=== PATIENT | male | born 1945 | race Caucasian/White ===

== ENCOUNTER 2023-07-09 08:41 | Emergency (ER) | payer OTHER, SELFPAY ==
[2023-07-09 08:59] VITALS: BP 140/83
[2023-07-09 09:28] VITALS: BMI 28.8
[2023-07-09 09:48] LABS: % Basophils 1.1 % (0-2); % Eosinophils 15.1 % (0-6); % Immature Granulocytes 0.5 % (0-0.5); % Lymphocytes 16.6 % (20.5-51.1); % Monocytes 12.2 % (1.7-9.3); % Neutrophils 54.5 % (42.2-75.2); Absolute Basophils 0.1 10^3/uL (0-0.2); Absolute Eosinophils 1.1 10^3/uL (0-0.7); Absolute Lymphocytes 1.3 10^3/uL (1.2-3.4); Absolute Monocytes 0.9 10^3/uL (0.1-0.6); Absolute Neutrophils 4.1 10^3/uL (1.4-6.5); Hematocrit 42.6 % (39.0-52.0); Hemoglobin 14.4 g/dL (13.0-18.0); Mean Corp Hgb Conc. 33.8 g/dL (33.0-37.0); Mean Corpuscular Hgb 28.9 pg (27.0-31.0); Mean Corpuscular Volume 85.5 fL (80.0-94.0); Mean Platelet Volume 9.7 fL (7.4-10.4); Nucleated Red Blood Cells % 0 % (-); Platelet Count 221 10^3/uL (130-400); Red Blood Cell Count 4.98 10^6/uL (4.70-6.10); Red Cell Dist. Width 13.9 % (11.5-14.5); White Blood Cell Count 7.5 10^3/uL (4.8-10.8)
--- NOTE | 2023-07-09 09:49 | ED.GENMED ---
History of Present Illness
General
Chief Complaint: Breathing Problem
Source: patient and spouse
Time Seen by Provider: 07/09/23 09:08
Travel History
Have you had any contact with someone who has COVID-19?: No
Do you have any symptoms of coronavirus? Fever > 100 degrees, chills, cough, shortness of breath, sore throat, loss of taste or smell, muscle aches, or headache?: No
History of Present Illness
History of Present Illness:
77-year-old male presenting the emergency department for evaluation after he has had upper respiratory symptoms that been ongoing since June 13, presented to urgent care on June 14 where he was a steroid taper and inhaler. Upon completing the
steroid felt better for about 2 days but then his upper respiratory symptoms returned. Patient went to his primary care provider on June 26 where he was checked for COVID, flu and RSV and was negative for all 3. Patient was restarted on a
longer term course of steroids which she has been taking but finished 2 days ago without much relief. Patient still endorses cough, sputum production, sinus congestion and notes that last night he started to feel short of breath noting that when he
would start to fall asleep felt as if someone were choking him and noted his pulse ox at that time was around 92% on room air. 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
ultimately ended up intubated for 2 days and recovered without any complications. Patient notes no history of asthma or COPD. He is readily compliant with the rest of his chronic medications for hypertension. No known sick contacts, recent travel
or recent antibiotics.
Past History
Past History
ED Past Medical History: Cancer (Bladder CA), HTN, Hypercholesterolemia and Other (Uretheral strictures, Urinary sepsis)
ED Past Surgical History: Orthopedic and Urological (Bladder surgery with Chemo)
Social History
Tobacco: Former smoker
Alcohol: None
Drug: None
Personal:
Living: with family
Employment: Employed
Review of Systems
Review of Systems
All Other Systems: ROS reviewed and negative except as documented in HPI and ROS
Phy Exam
Physical Exam
Physical Exam:
GENERAL: Alert , in no apparent distress
EYE: conjunctiva clear
NECK: Supple
ENT: o/p clr, mmm.
CARDIAC: Regular rate and rhythm, systolic murmur noted on the left sternal border
LUNGS: Slightly diminished within the right mid to lower lung, no acute respiratory distress, no wheezes/rales/rhonchi
NEUROLOGICAL: Alert and oriented
SKIN: Warm and dry, skin intact.
MUSCULOSKELETAL: well perfused. No edema
PSYCH: Normal and appropriate interaction.
Scores
Heart Failure Risk
Heart Failure Risk Score: Not Applicable
Heart Score for Chest Pain Patients
STEMI patient?: Not applicable
Withdrawal Assessment of Alcohol
Withdrawal Assessment Completed?: Not applicable
Course
Orders/Labs/Results
Orders:
Orders
07/09/23 09:09
Electrocardiogram (*1) Urgent
Reason for Study: Shortness of Breath
EKG- Treatment ONCE
07/09/23 09:38
Basic Metabolic Panel Urgent
Complete Blood Count/With Diff Urgent
D-Dimer Urgent
NT-proBNP Urgent
Troponin I Urgent
07/09/23 10:27
CR Chest - 2 Views Urgent
Comment:
Reason For Exam: cough, SOB
Abnormal Lab Results
07/09/23
09:38
Absolute Monos (auto) 0.9 H 10^3/uL
(0.1-0.6)
Absolute Eos (auto) 1.1 H 10^3/uL
(0-0.7)
Lymphocytes % 16.6 L %
(20.5-51.1)
Monocytes % 12.2 H %
(1.7-9.3)
Eosinophils % 15.1 H %
(0-6)
BUN 22 H mg/dl
(9-20)
Creatinine 1.4 H mg/dL
(0.7-1.3)
07/09/23 09:38
07/09/23 09:38
Vital Signs
Initial and Last Documented VS:
Initial Vital Signs
Temp Pulse Resp BP Pulse Ox
98.8 F 70 17 140/83 95
07/09/23 08:59 07/09/23 08:59 07/09/23 08:59 07/09/23 08:59 07/09/23 08:59
Last Documented Vital Signs
Temp Pulse Resp BP Pulse Ox
98.8 F 61 20 125/82 93
07/09/23 08:59 07/09/23 11:00 07/09/23 11:00 07/09/23 11:00 07/09/23 11:00
MDM/Problems Addressed
Differential Diagnosis Includes:
Pneumonia, CHF, valvular dysfunction, pulmonary embolism, bronchitis
MDM/Problems Addressed:
77-year-old male presenting emergency department for evaluation of upper respiratory symptoms that have been ongoing for over 3 weeks. Patient has completed 2 separate steroid tapers but without much relief, last night started experiencing
increased shortness of breath. On arrival to the emergency department here he is hemodynamically stable and is otherwise well-appearing and in no acute respiratory distress will check labs, EKG, D-dimer ordered and imaging will be dependent on this
results with either a chest x-ray or CT scan. Reassessment following
*Radiology
Radiology exam reviewed: preliminary read by ED provider (Questionable right perihilar infiltrate)
*Pulse Oximetry
Patient hypoxic: no
*EKG
Interpreted by ED Provider?: Yes
Comparison EKG: no changes
Heart Rate: 63
Rate: normal
Rhythm: sinus
Ischemia: no ischemia
*Critical Care Note
Total Time (30-74mins, 75-104mins- exclusive of procedures): Not Applicable
Patient Management
Escalation/DeEscalation of care consider admission/obs:
Patient's chest x-ray shows a questionable right perihilar infiltrate. Given his prolonged symptoms combined with minimal improvement with 2 separate steroid tapers will initiate treatment with doxycycline. I encouraged close outpatient follow-up
with primary care provider. Patient aware of return precautions but is otherwise stable for discharge home.
ED Attending Note
-
Portions of this chart may have been created with voice recognition software.� Occasional wrong word or��sound alike� substitutions may have occurred due to the inherent limitations of voice recognition software.
Discharge Plan
Departure
Patient Disposition: Home (Routine Discharge)
Date of Disposition: 07/09/23
Time of Disposition: 11:32
Patient with high blood pressure during this ER visit?: No
Discharge Problem:
Cough
Instructions: Pneumonia, Adult (DC)
Prescriptions:
New
doxycycline hyclate [Vibramycin] 100 mg capsule
100 mg PO BID 10 Days Qty: 20 0RF
No Action
carvedilol 12.5 MG tablet
12.5 mg PO BID
simvastatin 40 MG tablet
40 mg PO HS
ferrous sulfate [FeroSul] 325 MG tablet
65 mg PO SUTUTHSA@2200 Qty: 0
calcium polycarbophil [Fiber (calcium polycarbophil)] 625 MG tablet
625 mg PO PC Qty: 0
Patient Comments:
TID after meals
omeprazole 20 MG capsule,delayed release(DR/EC)
20 mg PO DAILY
fish oil-dha-epa 1 EACH capsule
1 ea PO BID Qty: 0
Tgthereji-Odjwqthbz-Lzuvpxp C 1 EACH tablet
850 mg PO BID Qty: 0
potassium chloride 10 MEQ tablet,ER particles/crystals
10 meq PO SuTuThSa@0800 0RF
lisinopril 20 MG tablet
20 mg PO DAILY
cyanocobalamin (vitamin B-12) 1,000 MCG tablet
1,000 mcg PO HS
naproxen sodium [Aleve] 220 MG tablet
220 mg PO DAILY
hydrochlorothiazide 25 MG tablet
25 mg PO DAILY
tadalafil [Cialis] 20 MG tablet
20 mg PO DAILYPRN PRN (Reason: Ed)
cholecalciferol (vitamin D3) 2,000 UNITS tablet
2,000 units PO DAILY
multivitamin with folic acid [Tab-A-Fred] 1 TABLET tablet
1 tab PO DAILY
diphenhydramine HCl [Banophen] 50 MG capsule
50 mg PO HS
Referrals:
Dante Bello MD [Family Provider] -
Interventions
Interventions:
*Risk Screen - Suicide Last Done: 07/09/23 09:38
*General Assessment Last Done: 07/09/23 09:47
*Neglect/Abuse Screening Last Done: 07/09/23 09:38
ED- Fall Risk Assessment Last Done: 07/09/23 09:45
*ED COVID-19 Vaccine History Last Done: 07/09/23 09:02
*Nursing Disposition Last Done: 07/09/23 11:49
ED- Cardiac Assessment Last Done: 07/09/23 09:45
ED- Pulmonary Assessment Last Done: 07/09/23 09:45
Discharge Date and Time
Discharge Date/Time: 07/09/23 12:00
[2023-07-09 10:00] VITALS: BP 127/89
[2023-07-09 10:03] LABS: Blood Urea Nitrogen 22 mg/dl (9-20); Calcium 9.3 mg/dl (8.4-10.2); Carbon Dioxide 29 mmol/L (22-30); Chloride 106 mmol/L (98-107); Estimated Creatinine Clearance 45 ml/min; Glucose 95 mg/dl (70-99); Potassium 4.1 mmol/L (3.5-5.1); Sodium 136 mmol/L (135-145); eGFR 51.45
[2023-07-09 10:13] LABS: NT-proBNP 171 pg/ml; Troponin I < 0.012 ng/ml
[2023-07-09 10:15] LABS: D-Dimer 0.43 ug/mlFEU (0.00-0.50)
[2023-07-09 11:00] VITALS: BP 125/82
== END 2023-07-09 12:00 | disposition home or self-care (01) ==
LOC: EMR 08:41
PROVIDERS: Physician Assistant Medical; EMERGENCY PHYSICIAN Emergency Medicine; FAMILY PHYSICIAN Internal Medicine
DX: R05.9 Cough, unspecified (principal); I10 Essential (primary) hypertension; E78.00 Pure hypercholesterolemia, unspecified; Z85.51 Personal history of malignant neoplasm of bladder; Z87.891 Personal history of nicotine dependence
CPT/HCPCS: 99283; 71046; 80048; 83880; 84484; 85025; 85379; 93005

== ENCOUNTER 2023-07-15 13:37 | Emergency (ER) | payer OTHER, SELFPAY ==
[2023-07-15] VITALS (7 sets, daily range): BP systolic 124–161; BP diastolic 72–86
[2023-07-15 14:05] LABS: % Basophils 1.1 % (0-2); % Immature Granulocytes 0.3 % (0-0.5); % Lymphocytes 23.8 % (20.5-51.1); % Neutrophils 52.8 % (42.2-75.2); Absolute Basophils 0.1 10^3/uL (0-0.2); Absolute Eosinophils 0.7 10^3/uL (0-0.7); Absolute Lymphocytes 1.8 10^3/uL (1.2-3.4); Hematocrit 44.3 % (39.0-52.0); Mean Corp Hgb Conc. 33.9 g/dL (33.0-37.0); Mean Corpuscular Hgb 29.4 pg (27.0-31.0); Mean Corpuscular Volume 86.9 fL (80.0-94.0); Mean Platelet Volume 9.9 fL (7.4-10.4); Nucleated Red Blood Cells % 0 % (-); Platelet Count 185 10^3/uL (130-400); Red Cell Dist. Width 13.4 % (11.5-14.5); White Blood Cell Count 7.5 10^3/uL (4.8-10.8)
[2023-07-15 14:21] LABS: ALT (SGPT) 17 U/L (0-50); AST (SGOT) 25 U/L (17-59); Alkaline Phosphatase 89 U/L (38-126); Blood Urea Nitrogen 20 mg/dl (9-20); Calcium 9.9 mg/dl (8.4-10.2); Carbon Dioxide 30 mmol/L (22-30); Chloride 99 mmol/L (98-107); Glucose 118 mg/dl (70-99); Potassium 3.7 mmol/L (3.5-5.1); Sodium 137 mmol/L (135-145); Total Protein 6.6 g/dl (6.3-8.2); eGFR 56.23
[2023-07-15 14:28] LABS: Troponin I < 0.012 ng/ml
--- NOTE | 2023-07-15 16:07 | ED.GENMED ---
History of Present Illness
General
Chief Complaint: Breathing Problem
Source: patient and spouse
Exam Limitations: none
Time Seen by Provider: 07/15/23 15:57
Nursing documentation reviewed up to this point in time: agreed with
Travel History
Have you had any contact with someone who has COVID-19?: No
Do you have any symptoms of coronavirus? Fever > 100 degrees, chills, cough, shortness of breath, sore throat, loss of taste or smell, muscle aches, or headache?: No
History of Present Illness
History of Present Illness:
77-year-old male presents emergency department due to continued shortness of breath for the past 2 weeks. He had a chest x-ray last week and is placed on doxycycline. He continues to cough. He has a history of eosinophilic pneumonia, and was a
former smoker.
Past History
Past History
ED Past Medical History: Cancer (Bladder CA), HTN, Hypercholesterolemia and Other (Uretheral strictures, Urinary sepsis)
ED Past Surgical History: Orthopedic and Urological (Bladder surgery with Chemo)
Social History
Tobacco: Former smoker
Alcohol: None
Drug: None
Personal:
Living: with family
Employment: Employed
Review of Systems
Review of Systems
Allergies reviewed?: Yes
All Other Systems: Not applicable
Constitutional: Reports no symptoms; Denies fever
EENT: Reports no symptoms
Respiratory: Reports cough and trouble breathing
Cardiac: Reports no symptoms
ABD/GI: Reports no symptoms
: Reports no symptoms
Musculoskeletal: Reports no symptoms
Skin: Reports no symptoms
Neurological: Reports no symptoms
Endocrine: Reports no symptoms
Hematologic/Lymphatic: Reports no symptoms
Psychiatric: Reports no symptoms
Phy Exam
Physical Exam
Physical Exam:
Physical Exam
General: Moderate respiratory distress, not acutely ill
Neck: supple. no meningeal signs. normal posterior pharynx
Heart: s1/s2 regular rate and rhythm, no murmur. equal radial
pulses.
HEENT: Pupils equal round reactive to light, EOMI
Lungs: Moderate respiratory distress. Wheezing bilaterally
Abdomen: normal bowel sounds. not tender. no CVAT
Neuro: alert and oriented. no focal neurological deficits cranial nerves II through XII intact
Skin: no rash
Psychiatric: well kept. interactive and cooperative
Extremities: no edema. no calf tenderness. negative homans. good distal pulses
Scores
Heart Failure Risk
Heart Failure Risk Score: Not Applicable
Course
Orders/Labs/Results
Orders:
Orders
07/15/23 13:41
Electrocardiogram (*1) Urgent
Reason for Study: Shortness of Breath
07/15/23 13:42
EKG- Treatment ONCE
07/15/23 13:51
CMP [Comprehensive Metabolic Panel] Urgent
Complete Blood Count/With Diff Urgent
Troponin I Urgent
07/15/23 16:06
IV Insert/Care/Rem.- Treatment PRN
Ipratropium/Albuterol Sulfate [Duoneb] 3 ml INH R NOW STA
07/15/23 16:07
CR Chest - 2 Views Urgent
Comment:
Reason For Exam: wheezing, short of breath
07/15/23 17:37
CT Chest Pe Study Urgent
Comment:
Reason For Exam: short of breath, worsening
Ipratropium/Albuterol Sulfate [Duoneb] 3 ml INH R NOW STA
07/15/23 20:31
Dexamethasone Sod Phosphate [Decadron] 10 mg IV NOW STA
Ipratropium/Albuterol Sulfate [Duoneb] 3 ml INH R NOW STA
Abnormal Lab Results
07/15/23
13:51
Absolute Monos (auto) 1.0 H 10^3/uL
(0.1-0.6)
Monocytes % 13.0 H %
(1.7-9.3)
Eosinophils % 9.0 H %
(0-6)
Glucose 118 H mg/dl
(70-99)
07/15/23 13:51
07/15/23 13:51
Vital Signs
Initial and Last Documented VS:
Initial Vital Signs
Temp Pulse Resp BP Pulse Ox
98.6 F 73 18 161/86 96
07/15/23 13:38 07/15/23 13:38 07/15/23 13:38 07/15/23 13:38 07/15/23 13:38
Last Documented Vital Signs
Temp Pulse Resp BP Pulse Ox
98.6 F 66 17 136/73 92
07/15/23 13:38 07/15/23 19:45 07/15/23 19:45 07/15/23 19:04 07/15/23 19:45
MDM/Problems Addressed
Differential Diagnosis Includes:
Pneumonia, PE, COPD, asthma
MDM/Problems Addressed:
77-year-old male with bronchospastic bronchitis. No signs of pneumonia, no signs of PE. Improved after DuoNebs and Decadron. Discharged to follow-up with pulmonology.
Chronic conditions affecting care: HTN
Acute Exacerbation and/or Progression of Chronic Illness: HTN
*Radiology
Radiology exam reviewed: radiology read reviewed (Chest x-ray no acute findings, CT chest no acute findings)
*Pulse Oximetry
Patient hypoxic: no
*EKG
Interpreted by ED Provider?: Yes
EKG Intrepretation Date: 07/15/23
EKG Intrepretation Time: 13:46
Interpretation: abnormal
Comparison EKG: no comparison EKG present
Heart Rate: 63
Rate: normal
Rhythm: sinus
[place]: normal axis
Interval: normal interval
QRS Pattern: normal QRS
Ischemia: non-specific ST changes
*Press Assistant And Feeder Interpretation
Rate: normal
Interpretation: normal
Heart Rate: 63
Rhythm: sinus
*Critical Care Note
Total Time (30-74mins, 75-104mins- exclusive of procedures): Not Applicable
Data Reviewed
Review of Other/Old Records Reveals: Radiology Studies
Source: records (Prior chest x-ray on 07/09/2023 no acute findings)
Patient Management
Social determinants of health affecting care: Living situation and Strong social support
Escalation/DeEscalation of care consider admission/obs:
admit not indicated
ED Attending Note
-
Portions of this chart may have been created with voice recognition software.� Occasional wrong word or��sound alike� substitutions may have occurred due to the inherent limitations of voice recognition software.
Discharge Plan
Departure
Patient Disposition: Home (Routine Discharge)
Date of Disposition: 07/15/23
Time of Disposition: 21:00
Patient with high blood pressure during this ER visit?: Yes
Condition: Good
Discharge Problem:
Acute bronchitis with bronchospasm
Instructions: Acute Bronchitis, Adult (DC)
Prescriptions:
New
prednisone 10 mg Tablet
See Rx Instructions .ROUTE .COMPLEX Qty: 45 0RF
Rx Instructions:
Take By Mouth:
50 mg daily x3 days, 40 mg daily x3 days,
30 mg daily x3 days, 20 mg daily x3 days,
10 mg daily x3 days
No Action
carvedilol 12.5 MG tablet
12.5 mg PO BID
simvastatin 40 MG tablet
40 mg PO HS
ferrous sulfate [FeroSul] 325 MG tablet
65 mg PO SUMOWEFRSA@2000 Qty: 0
calcium polycarbophil [Fiber (calcium polycarbophil)] 625 MG tablet
625 mg PO TID Qty: 0
Patient Comments:
TID after meals
omeprazole 20 MG capsule,delayed release(DR/EC)
20 mg PO DAILY
fish oil-dha-epa 1 EACH capsule
1 ea PO BID Qty: 0
lisinopril 20 MG tablet
20 mg PO DAILY
cyanocobalamin (vitamin B-12) 1,000 MCG tablet
1,000 mcg PO HS
naproxen sodium [Aleve] 220 MG tablet
220 mg PO DAILY
hydrochlorothiazide 25 MG tablet
25 mg PO DAILY
tadalafil [Cialis] 20 MG tablet
20 mg PO DAILYPRN PRN (Reason: Ed)
cholecalciferol (vitamin D3) 2,000 UNITS tablet
2,000 units PO DAILY
multivitamin with folic acid [Tab-A-Fred] 1 TABLET tablet
1 tab PO DAILY
doxycycline hyclate [Vibramycin] 100 mg capsule
100 mg PO BID 10 Days Qty: 20 0RF
Patient Comments:
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
diphenhydramine-acetaminophen [Tylenol PM Extra Strength] 25-500 mg Tablet
2 tab PO HS
cranberry 450 mg Tablet
450 mg PO DAILY
potassium chloride 10 MEQ tablet,ER particles/crystals
10 meq PO SUMOWEFRSA
Referrals:
Dante Bello MD [Family Provider] -
Interventions
Interventions:
*Risk Screen - Suicide Last Done: 07/15/23 13:38
*Neglect/Abuse Screening Last Done: 07/15/23 13:38
ED- Fall Risk Assessment Last Done: 07/15/23 16:48
*ED COVID-19 Vaccine History Last Done: 07/15/23 13:38
ED- Cardiac Assessment Last Done: 07/15/23 16:48
ED- Pulmonary Assessment Last Done: 07/15/23 16:48
[2023-07-15] MEDS: DUONEB 3 ML INH ×3 (16:19→20:37)
[2023-07-15] MEDS: DECADRON 10 MG IV (20:37)
== END 2023-07-15 21:24 | disposition home or self-care (01) ==
LOC: EMR 13:37
PROVIDERS: Emergency Medicine; EMERGENCY PHYSICIAN Emergency Medicine; FAMILY PHYSICIAN Internal Medicine
DX: J20.9 Acute bronchitis, unspecified (principal); I10 Essential (primary) hypertension; Z87.891 Personal history of nicotine dependence
CPT/HCPCS: 99285; 96374; 94640; 71046; 71275; 80053; 84484; 85025; 93005; Q9967

== ENCOUNTER → 2023-07-22 10:55 | Outpatient (REF) | payer OTHER, SELFPAY | LOC: HWRCS 10:55 | PROVIDERS: ATTENDING PHYSICIAN Internal Medicine Cardiovascular Disease; FAMILY PHYSICIAN Internal Medicine | DX: I08.0 Rheumatic disorders of both mitral and aortic valves (principal) | CPT/HCPCS: 93306 ==